=== PATIENT | male | born 1950 | race Caucasian/White ===

== ENCOUNTER 2018-11-01 07:56 | Day surgery (SDC) | payer MEDICARE ==
[~2018-11-01] VITALS: Ht 182.9 cm; Wt 233.0 kg
[~2018-11-01 07:56] MED LIST: ALBIPROI INH; ALBU8HFA2 INH; ALBU90OI INH; ALBU90OI61 INH; AMOX500 PO; ATOR20 PO; AZIT250 PO; Cialis20 MG PO; DOXY100 PO; ERYT500 PO; HYDACE5 PO; IBUP800 PO; NAPR500 PO; PENVK500 PO; PROCODE120 PO; PROM25 PO; RXERYT500 PO; RXHYDGUAS PO; TOBDEXOPSU OP
--- NOTE | 2018-11-01 08:19 | NUR ---
11/01/18 0819 Naomy De Leon IV ATTEMPT RIGHT HAND AND RIGHT AC BY [email or web address]
== END 2018-11-01 09:30 | disposition home or self-care (01) ==
LOC: ORSCSDS 07:56
PROVIDERS: Student in an Organized Health Care Education/Training Program
PROC: 0DB58ZX Excision of Esophagus, Via Natural or Artificial Opening Endoscopic, Diagnostic (ICD-10-PCS; principal; 2018-11-01 09:00)
DX: R13.10 Dysphagia, unspecified (principal); K21.0 Gastro-esophageal reflux disease with esophagitis; Z79.899 Other long term (current) drug therapy
CPT/HCPCS: 88305; 88312; J2704; J7120

== ENCOUNTER 2024-08-06 14:27 | Emergency (ER) | payer OTHER, MEDICARE ==
[~2024-08-06] VITALS: Ht 182.9 cm; Wt 94.8 kg
[2024-08-06 14:41] VITALS: BP 165/88
== END 2024-08-06 14:45 | disposition home or self-care (01) ==
LOC: ER 14:27
DX: S00.31XA Abrasion of nose, initial encounter (principal); S50.811A Abrasion of right forearm, initial encounter; W01.0XXA Fall on same level from slipping, tripping and stumbling without subsequent striking against object, initial encounter; Z87.891 Personal history of nicotine dependence; Z79.899 Other long term (current) drug therapy
CPT/HCPCS: 99282